=== PATIENT | male | born 1995 | race Caucasian/White ===

== ENCOUNTER 2020-11-20 13:18 | Emergency (ER) | payer SELFPAY ==
[2020-11-20 13:33] VITALS: BP 128/67; PULSE 102; RESP 17; TEMP 36.8; O2SAT 100
[2020-11-20 13:47] LABS: Add Urine Microscopic? NO; Appearance Urine Clear (Clear); Bilirubin Urine Negative (Negative); Blood Urine Negative (Negative); Color Urine Straw (Yellow); Glucose Urine UA Negative (Negative); Ketones Urine Negative (Negative); Leukocyte Esterase Ur Negative LEU/UL (Negative); Nitrate Urine Negative (Negative); Protein Urine Negative (Negative); Specific Grav Ur 1.009 (1.001-1.035); Urobilinogen Urine Negative mg/dL (<2.0)
--- NOTE | 2020-11-20 14:35 | ED.GENADULT ---
HPI - General Adult General Chief complaint: Back Pain/Injury <Jodi De Anda PA-C - Last Filed: 11/20/20 14:45> Stated complaint: back pain <Jodi De Anda PA-C - Last Filed: 11/20/20 14:45> Time Seen by Provider: 11/20/20 13:38 <Jodi De Anda PA-C - Last Filed: 11/20/20 14:45> Source: patient <Jodi De Anda PA-C - Last Filed: 11/20/20 14:45> Mode of arrival: ambulatory <LAMONTE Mancilla Last Filed: 11/20/20 14:45> Limitations: no limitations <Jodi De Anda PA-C - Last Filed: 11/20/20 14:45> History of Present Illness HPI narrative: Patient presents with no pain or concerns but states that he had to be evaluated because he complained of flank pain due to drinking too much soda pop and of water while at work in his job told him that he had to come to be evaluated. Patient states he feels fine he does not have any back pain pain with urination, fever, chills, nausea, vomiting, abdominal pain. He states he is only here to be cleared to return back to work. Patient states that it is typical for him to sometimes get back pain when he drinks too much soda and not enough water he was just trying to have a break to drink water while at work. He denies any other needs or concerns. <Jodi De Anda PA-C - Last Filed: 11/20/20 14:45> Review of Systems Review of Systems: Narrative: CONSTITUTIONAL: Denies fever, chills, or sweats. EYES: Denies visual changes, redness, or discharge. ENT: Denies rhinorrhea, congestion, sore throat, or otalgia. CARDIOVASCULAR: Denies chest pain, palpitations, or edema. RESPIRATORY: Denies cough or dyspnea. GASTROINTESTINAL: Denies abdominal pain, nausea, vomiting, or diarrhea. GENITOURINARY: Denies dysuria or hematuria. SKIN: Denies rash or itching. MUSCULOSKELETAL: Denies back pain, joint pain, or myalgia. NEUROLOGIC: Denies headache, numbness, dizziness, or weakness. PSYCHIATRIC: Denies anxiety or depression. <Jodi De Anda PA-C - Last Filed: 11/20/20 14:45> [facility] Social History Social History: Social History Gender identity (if verbalized by the patient): Male <Jodi De Anda PA-C - Last Filed: 11/20/20 14:45> Exam Narrative: Exam Narrative: GENERAL: Well-appearing, well-nourished, and in no acute distress. HEAD: Normocephalic, atraumatic. EYES: PERRLA and EOMI. ENT: Nares clear, no rhinorrhea or epistaxis. Mucous membranes moist. Oropharynx without tonsillar hypertrophy exudate or other lesions. Bilateral TMs pearly darling nonbulging. Poor dentition. NECK: Supple. No adenopathy or masses. CHEST: Clear to auscultation. No respiratory distress. No wheezes rales or rhonchi. No CVA tenderness. HEART: Regular rate and rhythm. ABDOMEN: Soft, nontender, nondistended, normal active bowel sounds. EXTREMITIES: Normal range of motion. No edema. SKIN: Warm, dry, no rash. NEURO: No focal deficits. Alert and oriented x3. PSYCH: Normal mood and affect. <Jodi De Anda PA-C - Last Filed: 11/20/20 14:45> Course Vital Signs Vital signs: Vital Signs Temperature 98.3 F 11/20/20 13:33 Pulse Rate 102 H 11/20/20 13:33 Respiratory Rate 17 11/20/20 13:33 Blood Pressure 128/67 11/20/20 13:33 Pulse Oximetry 100 11/20/20 13:33 Temperature 98.3 F 11/20/20 13:33 Pulse Rate 102 H 11/20/20 13:33 Respiratory Rate 17 11/20/20 13:33 Blood Pressure 128/67 11/20/20 13:33 Pulse Oximetry 100 11/20/20 13:33 <Jodi De Anda PA-C - Last Filed: 11/20/20 14:45> Vital Signs Temperature 98.3 F 11/20/20 13:33 Pulse Rate 102 H 11/20/20 13:33 Respiratory Rate 17 11/20/20 13:33 Blood Pressure 128/67 11/20/20 13:33 Pulse Oximetry 100 11/20/20 13:33 Temperature 98.3 F 11/20/20 13:33 Pulse Rate 102 H 11/20/20 13:33 Respiratory Rate 17 11/20/20 13:33 Blood Pressure 128/67 11/20/20 13:33 Pulse Oximetry 100 11/20/20 13:33 <Radha Rouse MD - Last Filed: 11/20/20 16:06> [facility]
== END 2020-11-20 14:50 | disposition home or self-care (01) ==
PROVIDERS: Emergency Provider General Practice
DX: R10.9 Unspecified abdominal pain (principal)
CPT/HCPCS: 81003; 99283